=== PATIENT | female | born 1935 | race Caucasian/White ===

== ENCOUNTER 2017-09-16 10:21 | Emergency (ER) | payer MEDICARE ==
[~2017-09-16] VITALS: Ht 165.1 cm; Wt 60.0 kg
[2017-09-16] MEDS ORDERED: ALLOPURINOL100 MG PO (10:38)
[2017-09-16] MEDS ORDERED: METOPROL TAR25 MG PO (10:38)
[2017-09-16] MEDS ORDERED: ASPIRIN81 MG PO (10:39)
[2017-09-16] MEDS ORDERED: B-121000 MC4 PO (10:39)
[2017-09-16] MEDS ORDERED: SIMVASTATIN40 MG PO (10:40)
[2017-09-16] MEDS ORDERED: MUCUS RELIEF400 MG PO (10:42)
[2017-09-16] MEDS ORDERED: VENTOLIN HFA IN (10:43)
[2017-09-16 11:25] VITALS: BP 196/81
== END 2017-09-16 13:30 ==
LOC: ED 10:21
DX: S02.2XXA Fracture of nasal bones, initial encounter for closed fracture (principal); R22.0 Localized swelling, mass and lump, head; W01.0XXA Fall on same level from slipping, tripping and stumbling without subsequent striking against object, initial encounter; Y93.01 Activity, walking, marching and hiking; Y92.128 Other place in nursing home as the place of occurrence of the external cause

== ENCOUNTER 2017-11-19 21:27 | Inpatient (IN) | payer MEDICARE ==
[~2017-11-19] VITALS: Ht 165.1 cm; Wt 60.0 kg
[~2017-11-19 21:27] MED LIST: ALLOPURINOL100 MG PO; ASPIRIN81 MG PO; B-121000 MC4 PO; METOPROL TAR25 MG PO; MUCUS RELIEF400 MG PO; SIMVASTATIN40 MG PO; VENTOLIN HFA IN
[2017-11-19 22:25] LABS: HEMATOCRIT 35.4 % (37.0-47.0); HEMOGLOBIN 11.4 g/dl (12.0-16.0); IMMATURE GRANULOCYTES 0.7 % (0.0-1.0); MEAN CELL VOLUME 88.7 fL CALC (80.0-100.0); MEAN CORPUSCULAR HGB 28.6 pG CALC (26.0-32.0); MEAN CORPUSCULAR HGB CONC 32.2 g/L CALC (32.0-36.0); NEUT# 5.57 thou/uL (2.00-7.15); RED BLOOD COUNT 3.99 mill/uL (4.20-5.60); RED CELL DISTRI WIDTH 17.2 % (11.5-15.5)
[2017-11-19 22:44] LABS: ALBUMIN 2.8 g/dL (3.2-5.0); ALKALINE PHOSPHATASE 93 u/l (38-126); BUN 12 mg/dL (8-23); BUN/CREATININE RATIO 21 (12-20 (CALC)); CARBON DIOXIDE 27 mmol/l (22-30); CHLORIDE 94 mmol/l (95-108); CREATININE 0.6 mg/dL (0.5-1.0); GFR > 60 ML/MIN (>=60 (CALC)); GFR FOR AFR.AMER. > 60 ML/MIN (>=60 (CALC)); SGOT/AST 25 u/l (9-36); SGPT/ALT 21 u/l (11-66); SODIUM 132 mmol/l (137-146); TOTAL PROTEIN 5.7 g/dL (6.3-8.2)
[2017-11-19 22:46] LABS: ANION GAP 14 (6-22 (CALC)); BILIRUBIN, TOTAL 0.8 mg/dL (0.0-1.4); POTASSIUM 3.1 mmol/l (3.5-5.1)
[2017-11-19 22:56] LABS: MYOGLOBIN 269 ng/mL (0 - 62)
[2017-11-20 01:49] LABS: URINE BILIRUBIN - DIPSTICK NEGATIVE (NEGATIVE); URINE BLOOD DIPSTICK SMALL (NEGATIVE); URINE COLOR YELLOW; URINE GLUCOSE - DIPSTICK NEGATIVE (NEGATIVE); URINE KETONE NEGATIVE (NEGATIVE); URINE LEUK ESTERASE TRACE (NEGATIVE); URINE NITRITE - DIPSTICK NEGATIVE (Negative); URINE PH 6.5 (4.5-8.0); URINE PROTEIN - DIPSTICK 30 mg/dL (NEG-TRACE)
[2017-11-20 01:51] LABS: URINE CLARITY CLEAR
[2017-11-20 02:14] LABS: URINE BACTERIA MANY hpf; URINE WBC 20-50 WBC/hpf (0-5)
[2017-11-20 04:13] VITALS: BP 160/75
[2017-11-20 10:14] LABS: HEMOGLOBIN 11.1 g/dl (12.0-16.0); IMMATURE GRANULOCYTES 0.4 % (0.0-1.0); MEAN CELL VOLUME 88.1 fL CALC (80.0-100.0); MEAN CORPUSCULAR HGB 28.8 pG CALC (26.0-32.0); MEAN CORPUSCULAR HGB CONC 32.6 g/L CALC (32.0-36.0); NEUT# 3.52 thou/uL (2.00-7.15); RED BLOOD COUNT 3.86 mill/uL (4.20-5.60); RED CELL DISTRI WIDTH 17.3 % (11.5-15.5)
[2017-11-20 10:54] LABS: ALBUMIN 2.4 g/dL (3.2-5.0); ALKALINE PHOSPHATASE 78 u/l (38-126); BUN 11 mg/dL (8-23); BUN/CREATININE RATIO 19 (12-20 (CALC)); CARBON DIOXIDE 28 mmol/l (22-30); CHLORIDE 97 mmol/l (95-108); CREATININE 0.6 mg/dL (0.5-1.0); GFR > 60 ML/MIN (>=60 (CALC)); GFR FOR AFR.AMER. > 60 ML/MIN (>=60 (CALC)); SGOT/AST 29 u/l (9-36); SGPT/ALT 26 u/l (11-66); SODIUM 134 mmol/l (137-146); TOTAL PROTEIN 4.9 g/dL (6.3-8.2)
[2017-11-20 11:16] LABS: ANION GAP 11 (6-22 (CALC)); BILIRUBIN, TOTAL 0.4 mg/dL (0.0-1.4); POTASSIUM 2.4 mmol/l (3.5-5.1)
[2017-11-20 16:00] VITALS: BP 148/64
[2017-11-20 17:56] LABS: INFLUENZA A POSITIVE (NONE DETECT); INFLUENZA B NONE DETECTED (NONE DETECT)
[2017-11-20 20:00] VITALS: BP 141/62
[2017-11-20 23:48] VITALS: BP 162/67
[2017-11-21 04:05] VITALS: BP 112/57
[2017-11-21 05:27] LABS: HEMATOCRIT 32.1 % (37.0-47.0); HEMOGLOBIN 10.3 g/dl (12.0-16.0); IMMATURE GRANULOCYTES 0.3 % (0.0-1.0); MEAN CELL VOLUME 89.2 fL CALC (80.0-100.0); MEAN CORPUSCULAR HGB 28.6 pG CALC (26.0-32.0); MEAN CORPUSCULAR HGB CONC 32.1 g/L CALC (32.0-36.0); NEUT# 2.38 thou/uL (2.00-7.15); RED BLOOD COUNT 3.6 mill/uL (4.20-5.60); RED CELL DISTRI WIDTH 17.1 % (11.5-15.5)
[2017-11-21 05:46] LABS: BUN 12 mg/dL (8-23); BUN/CREATININE RATIO 20 (12-20 (CALC)); CARBON DIOXIDE 26 mmol/l (22-30); CHLORIDE 104 mmol/l (95-108); CREATININE 0.6 mg/dL (0.5-1.0); GFR > 60 ML/MIN (>=60 (CALC)); GFR FOR AFR.AMER. > 60 ML/MIN (>=60 (CALC)); MAGNESIUM 1.5 mg/dL (1.6-2.3); SODIUM 137 mmol/l (137-146)
[2017-11-21 05:48] LABS: ANION GAP 10 (6-22 (CALC)); POTASSIUM 3.3 mmol/l (3.5-5.1)
[2017-11-21 08:00] VITALS: BP 169/78
[2017-11-21 12:00] VITALS: BP 177/82
[2017-11-21 19:00] VITALS: BP 140/60
[2017-11-21 23:35] VITALS: BP 168/65
[2017-11-22 04:00] VITALS: BP 148/70
[2017-11-22 05:41] LABS: MEAN CELL VOLUME 89.4 fL CALC (80.0-100.0); MEAN CORPUSCULAR HGB CONC 31.4 g/L CALC (32.0-36.0); RED BLOOD COUNT 4.53 mill/uL (4.20-5.60); RED CELL DISTRI WIDTH 17.2 % (11.5-15.5)
[2017-11-22 05:47] LABS: HEMATOCRIT 40.5 % (37.0-47.0); HEMOGLOBIN 12.7 g/dl (12.0-16.0)
[2017-11-22 05:56] LABS: ANION GAP 16 (6-22 (CALC)); BUN 13 mg/dL (8-23); BUN/CREATININE RATIO 24 (12-20 (CALC)); CARBON DIOXIDE 26 mmol/l (22-30); CHLORIDE 101 mmol/l (95-108); CREATININE 0.6 mg/dL (0.5-1.0); GFR > 60 ML/MIN (>=60 (CALC)); GFR FOR AFR.AMER. > 60 ML/MIN (>=60 (CALC)); POTASSIUM 3.8 mmol/l (3.5-5.1); SODIUM 139 mmol/l (137-146)
[2017-11-22 15:00] VITALS: BP 182/87
[2017-11-22 18:50] VITALS: BP 161/79
[2017-11-23 00:41] VITALS: BP 139/65
[2017-11-23 04:00] VITALS: BP 130/64
[2017-11-23 07:14] LABS: HEMATOCRIT 37.4 % (37.0-47.0); HEMOGLOBIN 12.4 g/dl (12.0-16.0); IMMATURE GRANULOCYTES 0.3 % (0.0-1.0); MEAN CELL VOLUME 86.8 fL CALC (80.0-100.0); MEAN CORPUSCULAR HGB 28.8 pG CALC (26.0-32.0); MEAN CORPUSCULAR HGB CONC 33.2 g/L CALC (32.0-36.0); NEUT# 2.16 thou/uL (2.00-7.15); RED BLOOD COUNT 4.31 mill/uL (4.20-5.60); RED CELL DISTRI WIDTH 16.8 % (11.5-15.5)
[2017-11-23 07:52] LABS: ANION GAP 12 (6-22 (CALC)); BUN 17 mg/dL (8-23); BUN/CREATININE RATIO 33 (12-20 (CALC)); CARBON DIOXIDE 29 mmol/l (22-30); CHLORIDE 97 mmol/l (95-108); CREATININE 0.5 mg/dL (0.5-1.0); GFR > 60 ML/MIN (>=60 (CALC)); GFR FOR AFR.AMER. > 60 ML/MIN (>=60 (CALC)); MAGNESIUM 1.6 mg/dL (1.6-2.3); POTASSIUM 3.4 mmol/l (3.5-5.1); SODIUM 135 mmol/l (137-146)
[2017-11-23 08:00] VITALS: BP 170/84
[2017-11-23] MEDS ORDERED: AMLODIPINE BESYL5 MG PO (12:18)
[2017-11-23] MEDS ORDERED: ZITHROMAX500 MG PO (12:18)
[2017-11-23] MEDS ORDERED: TAMIFLU30 MG PO (12:18)
[2017-11-23] MEDS ORDERED: PREDNISONE10 MG PO (12:18)
[2017-11-23] MEDS ORDERED: ZOCOR20 M1 PO (12:18)
[2017-11-23 13:15] VITALS: BP 151/80
== END 2017-11-23 13:39 | DRG 194 ==
LOC: ED 21:27 → ED-I 22:09 → ED 11-20 03:02 → ICU 11-20 03:03 → MS2 11-22 15:52
PROVIDERS: Emergency Medicine; Internal Medicine; Nurse Practitioner Family; ADMIT Internal Medicine; ATTEND Internal Medicine
DX: J10.00 Influenza due to other identified influenza virus with unspecified type of pneumonia (principal); J44.1 Chronic obstructive pulmonary disease with (acute) exacerbation; I48.2 Chronic atrial fibrillation; J44.0 Chronic obstructive pulmonary disease with (acute) lower respiratory infection; E83.42 Hypomagnesemia; N39.0 Urinary tract infection, site not specified; R09.02 Hypoxemia; J18.9 Pneumonia, unspecified organism; E11.9 Type 2 diabetes mellitus without complications; F03.90 Unspecified dementia, unspecified severity, without behavioral disturbance, psychotic disturbance, mood disturbance, and anxiety; I10 Essential (primary) hypertension; E87.6 Hypokalemia
CPT/HCPCS: J2060

== ENCOUNTER 2017-12-24 13:25 | Inpatient (IN) | payer OTHER, MEDICARE ==
[~2017-12-24] VITALS: Ht 165.1 cm; Wt 79.0 kg
[~2017-12-24 13:25] MED LIST changes: +AMLODIPINE BESYL5 MG PO; +PREDNISONE10 MG PO; +TAMIFLU30 MG PO; +ZITHROMAX500 MG PO; +ZOCOR20 M1 PO
--- NOTE | 2017-12-24 13:36 | NUR ---
PT TO ROOM FOR EXAM
[2017-12-24] MEDS ORDERED: QUETIAPINE FUMA25 MG PO (13:44)
--- NOTE | 2017-12-24 13:45 | NUR ---
PT C/O BEING COLD. PT GIVEN WARM BLANKET AND CALL KEENE. CURTAINS OPENED, DOOR CLOSED. PTS RAILS UP & BED IN LOWEST POSITION. PT TOLD TO CALL STAFF.
[2017-12-24 13:59] LABS: HEMATOCRIT 34.3 % (37.0-47.0); HEMOGLOBIN 10.8 g/dl (12.0-16.0); IMMATURE GRANULOCYTES 0.6 % (0.0-1.0); MEAN CORPUSCULAR HGB 29.1 pG CALC (26.0-32.0); MEAN CORPUSCULAR HGB CONC 31.5 g/L CALC (32.0-36.0); RED BLOOD COUNT 3.71 mill/uL (4.20-5.60); RED CELL DISTRI WIDTH 17.3 % (11.5-15.5)
[2017-12-24 14:02] LABS: MEAN CELL VOLUME 92.5 fL CALC (80.0-100.0)
[2017-12-24 14:17] LABS: BUN 20 mg/dL (8-23); BUN/CREATININE RATIO 27 (12-20 (CALC)); CARBON DIOXIDE 22 mmol/l (22-30); CHLORIDE 101 mmol/l (95-108); CREATININE 0.7 mg/dL (0.5-1.0); GFR > 60 ML/MIN (>=60 (CALC)); GFR FOR AFR.AMER. > 60 ML/MIN (>=60 (CALC)); SODIUM 136 mmol/l (137-146)
[2017-12-24 14:18] LABS: ANION GAP 17 (6-22 (CALC)); POTASSIUM 4.2 mmol/l (3.5-5.1)
--- NOTE | 2017-12-24 14:26 | NUR ---
PORT XRAY COMPLETED. PT SLEEPING PRIOR TO EXAM.
--- NOTE | 2017-12-24 15:01 | NUR ---
SBAR PRINTED TO FLOOR
--- NOTE | 2017-12-24 15:10 | NUR ---
CALLED TO ROOM BY VISITOR WHO STATES PT HAD TO USE THE BATHROOM. WHEN I ENTERED THE ROOM, PT DENIED HAVING TO GO TO THE BATHROOM (IN FRONT OF VISITOR).
--- NOTE | 2017-12-24 15:15 | NUR ---
Admission Note Report Given to: ALEX DAMICON Transported by: Wheelchair X Stretcher Transported with: X Nurse Transporter X Patent IV O2 X System Sales Consultant ICU #[id number]
--- NOTE | 2017-12-24 15:30 | NUR ---
PT ARRIVED TO THE UNIT VIA STRETCHER, PT TRANSFERRED SELF FROM STRETCHER TO BED WITH MINIMAL ASSISTANCE, PT DENIES ANY PAIN AT THIS TIME, PT ORIENTED TO PERSON, PT ORIENTED TO THE ROOM, CALL KEENE SYSTEM AND MONITORING EQUIPMENT, PT VERBALIZES UNSDERSTANDING AT THIS TIME, PT HAS A HX OF DEMENTIA PER DAUGHTER WHO IS BEDSIDE, REOIENTATION WILL BE PROVIDED NEEDED, PERRL, LUNG SOUNDS DIMINISHED IN THE BASES, STRONG RADIAL PULSES, WEAK PEDAL PULSES, 2+ BLE EDEMA, BUTTOCK RED, PT EDUCATED ABOUT REPOSTIONING TO PREVENT PRESSURE ULCERS, ADMISSION ASSESSMENT COMPLETE, SEE INTERVENTIONS, SAFETY MEASURES INTRODUCED, CALL KEENE WITHIN REACH
--- NOTE | 2017-12-24 15:42 | NUR ---
PT TRANSPORTED TO ICU #4 BY STRETCHER WITH TELE IN STABLE CONDITION.
--- NOTE | 2017-12-24 16:20 | NUR ---
PT REPOSTIONED AND CLEANED UP FROM INCONTINENTS
--- NOTE | 2017-12-24 16:50 | NUR ---
DR RALPH AT BEDSIDE, DISCUSSING PLAN OF CARE WITH PT AND DAUGHTER
--- NOTE | 2017-12-24 17:20 | NUR ---
PT ASSISTED TO THE BSC AND BACK TO BED, PT AMBULATED WITH A SLOW UNSTEADY GAIT, TOLERATED WELL, CALL KEENE WITHIN REACH
--- NOTE | 2017-12-24 17:30 | NUR ---
SETUP ASSISTANCE PROVIDED WITH PM MEAL
--- NOTE | 2017-12-24 17:40 | NUR ---
PT PULLING AT MONITORING EQUIPMENT AND TRYING TO CRAWL OUT OF BED, PT STATES "I NEED TO GET OUT OF HERE", PT REORIENTED TO LOCATION, REMINDED TO CALL FOR ASSISTANCE, CALL KEENE WITHIN REACH
--- NOTE | 2017-12-24 18:20 | NUR ---
IN STORE REPRESENTATIVE AT BEDSIDE, PT MAKES REPEATED ATTMEPTS TO GET OOB, WILL NOT LEAVE MONITORING EQUIPMENT IN PLACE, REPEATEDLY STATES JUST HELP ME OUT TO THE LIVING ROOM, ATTEMPTS TO REORIENT NOT SUCCESSFUL
--- NOTE | 2017-12-24 18:40 | NUR ---
PT TRYING TO CRAWL OUT OF BED, TRIED TO REORIENTED PT WITH NO SUCCESS, PT KICKING AT STAFF, MADE AWARE OF BEHAVIOR, ORDERS GIVEN
--- NOTE | 2017-12-24 18:40 | NUR ---
REPORT FROM Otto VEGA LPN. ASSUMED PT. CARE.
--- NOTE | 2017-12-24 18:45 | NUR ---
PT. FOUND COMPLETELY UNCOOPERATIVE AT THIS TIME. SITTER AT BEDSIDE AND PT. YELLING AT SITTER ATTEMPTING TO HIT HER IN THE FACE. ALSO ATTEMPTING TO AND HAS SUCCESSFULLY KICKED THE SITTER IN THE FACE. PT. IS ORIENTED TO PERSON ONLY. THINKS SHE IS IN A KITCHEN. ORIENTED TO SITUATION. PT. IS REFUSING TO KEEP ANY LINES/TELEMETRY/BP CUFF OR PULSE OX ON HER PERSON. ATTEMPTING TO PULL OFF GOWN. YELLING AND CONTINUALLY ATTEMPTING TO CLIMB OUT OF BED. MADE AWARE. NEW ORDERS RECEIVED.
--- NOTE | 2017-12-24 19:00 | NUR ---
PT. MEDICATED PER PHYSICIAN ORDERS. PT. REMAINS UNCOOPERATIVE WITH CARE. SLIGHTLY LESS AGGITATED AT THIS TIME. NO LONGER REFUSING TO TAKE PO MEDS. ORIENTED TO PERSON ONLY. PULSE 88 AT THIS TIME. TEMP 99.2. RESPS ARE EVEN AND UNLABORED. SKIN IS WARM AND DRY. SITTER REMAINS AT BEDSIDE ATTEMPTING TO REORIENT AND KEEP PATIENT IN THE BED. WILL CONTINUE TO MONITOR.
[2017-12-24 20:00] VITALS: BP 138/99
--- NOTE | 2017-12-24 20:30 | NUR ---
PT. LESS ANXIOUS, BUT REMAINS UNCOOPERATIVE WITH CARE AND ATTEMPTED TREATMENT INTERVENTIONS. TEMP IS 99.2. PT. CONTINUES TO ATTEMPT TO PULL GOWN OFF AND REFUSES TO KEEP MONITORS IN PLACE. CALL LIGHT REMAINS WITHIN REACH. WILL CONTINUE TO MONITOR.
--- NOTE | 2017-12-24 21:10 | NUR ---
PT. REMAINS RESTLESS AND ATTEMPTING TO CLIMB OOB. MEDICATED PER PHYSICIAN ORDERS. REMAINS ORIENTED TO PERSON ONLY. AWAITING PARAPLANNER TO CALL TO TAKE PATIENT DOWN FOR CT CHEST/ABD PELVIS. CALL LIGHT REMAINS WITHIN REACH AND SITTER REMAINS AT BEDSIDE AT THIS TIME. WILL CONTINUE TO MONITOR.
[2017-12-24 21:56] VITALS: BP 129/87
[2017-12-24 22:00] VITALS: BP 113/56
--- NOTE | 2017-12-24 22:15 | NUR ---
PT. CLEANSED OF URINARY INCONTINENCE AT THIS TIME. LARGE AMOUNT OF URINARY INCONTINENCE NOTED.
--- NOTE | 2017-12-24 22:30 | NUR ---
PT. TAKEN DOWN TO RADIOLOGY AT THIS TIME FOR CT SCAN WITH TESTER REGULATOR TO ASSIST.
--- NOTE | 2017-12-24 23:00 | NUR ---
RETURNED FROM CT SCAN AT THIS TIME. PT. GIVEN TOTAL BED BATH SHE IS INCONTNENT OF URINE FROM TRANSPORT TO CT SCAN. PT. TOLERATED CT WELL. NO REACTIONS. PT. WAS LESS THAN COOPERATIVE WITH CT STUDY. PT. REORIENTED TO ROOM AND ATTEMPTED TO HOOK PT. UP TO TELEMETRY AND BP/SPO2 MONITOR. NITRO PASTE REMAINS IN PLACE TO LT. UPPER BACK.
[2017-12-25] VITALS (9 sets, daily range): BP systolic 84–132; BP diastolic 37–71
--- NOTE | 2017-12-25 00:57 | NUR ---
PT. RESTING IN BED WITH EYES CLOSED. SITTER REMAINS AT BEDSIDE AT THIS TIME. REMAINS INTERMITTENTLY UNCOOPERATIVE, BUT ALLOWING MONITOR LEADS TO REMAIN ON AT THIS TIME. VSS. CALL LIGHT REMAINS WITHIN REACH.
--- NOTE | 2017-12-25 02:30 | NUR ---
PT. RESTING WITH EYES CLOSED. RESPS REMAIN EVEN AND UNLABORED. RESEARCH SPEC CONTINUES TO SIT AT BEDSIDE TO REORIENT PATIENT NEEDED. VSS. PT. VOICES NO COMPLAINTS, CONCERNS OR NEEDS. WILL CONTINUE TO MONITOR.
--- NOTE | 2017-12-25 04:15 | NUR ---
PT. INCREASINGLY AGGITATED, ATTEMPTING TO CLIMB OUT OF BED. ATTEMPTED TO REORIENT PATIENT. REMAINS ORIENTED TO PERSON ONLY. RESPS REMAIN EVEN AND UNLABORED. CALL LIGHT REMAINS WITHIN REACH. PT. REMAINS A-FIB WITH RATE IN THE 70-90'S.
--- NOTE | 2017-12-25 06:10 | NUR ---
BLOOD SAMPLES OBTAINED AT THIS TIME. PT. REMAINS CALM AND RESTFUL. PADS CHANGED AT THIS TIME PT. INCONTINENT OF URINE. PARTIAL BED BATH GIVEN. PT. TOLERATED WELL. CALL LIGHT REMAINS WITHIN REACH.
[2017-12-25 06:25] LABS: IMMATURE GRANULOCYTES 0.4 % (0.0-1.0); MEAN CELL VOLUME 89.8 fL CALC (80.0-100.0); MEAN CORPUSCULAR HGB 28.8 pG CALC (26.0-32.0); NEUT# 5.15 thou/uL (2.00-7.15); RED BLOOD COUNT 3.13 mill/uL (4.20-5.60); RED CELL DISTRI WIDTH 17.2 % (11.5-15.5)
[2017-12-25 06:26] LABS: HEMATOCRIT 28.1 % (37.0-47.0)
[2017-12-25 06:38] LABS: ANION GAP 12 (6-22 (CALC)); BUN 19 mg/dL (8-23); BUN/CREATININE RATIO 25 (12-20 (CALC)); CARBON DIOXIDE 27 mmol/l (22-30); CHLORIDE 100 mmol/l (95-108); CREATININE 0.8 mg/dL (0.5-1.0); GFR > 60 ML/MIN (>=60 (CALC)); GFR FOR AFR.AMER. > 60 ML/MIN (>=60 (CALC)); POTASSIUM 3.6 mmol/l (3.5-5.1); SODIUM 136 mmol/l (137-146)
--- NOTE | 2017-12-25 07:30 | NUR ---
PT LAYING IN BED RESTING WITH EYES CLOSED, AROUSES EASILY TO VERBAL STIMULI, PT ORIENTED TO PERSON, NEEDS REOIENTING FREQUENTLY, HR 76, RESP. 22, BP 99/45, O2 100%, LUNG SOUNDS CLEAR WITH CRACKLES IN THE BASES, STRONG RADIAL PULSES, WEAK PEDAL PULSES, AM ASSESSMENT COMPLETE, SEE INTERVENTIONS, SAFETY MEASURES REINFORCED, CALL KEENE WITHIN REACH
--- NOTE | 2017-12-25 08:00 | NUR ---
PT DROWSY, AROUSES BUT UNABLE TO TO STAY AWAKE LONG ENOUGH FOR AM MEAL, PT ORIENTED TO PERSON, REMINDED TO CALL FOR ASSISTANCE, CALL KEENE WITHIN REACH
--- NOTE | 2017-12-25 10:20 | NUR ---
PT LAYING IN BED RESTING WITH EYES CLOSED, AROUSES THEN DOZES OFF QUICKLY, VITAL SIGNS REMAIN STABLE, CALL KEENE WITHIN REACH
--- NOTE | 2017-12-25 11:00 | NUR ---
PARTIAL BATH GIVEN TO PT, PT CLEANED UP AND FRESH LINENS PUT ON BED, PT REMAINS DROWSY, AROUSES TO VERBAL STIMULI, VITAL SIGNS REMAIN STABLE, CALL KEENE WITHIN REACH
--- NOTE | 2017-12-25 12:00 | NUR ---
PT REMAINS DROWSY AROUSES TO VERBAL STIMULI, PT REPOSITIONED, PT REMAINS DRY AT THIS TIME, CALL KEENE WITHIN REACH
--- NOTE | 2017-12-25 14:29 | NUR ---
PT ARRIVED VIA BED WITH STAFF AT 1425. TOLERATED MOVE WELL. CONTINUE TO OSBERVE AND MONITOR.
--- NOTE | 2017-12-25 16:00 | NUR ---
PT HAS BEEN RESTING IN BED WITH NO DISTRESS NOTED. IV SITE WAS REMOVED BY PT AFTER BEING VISITED BY AND AVA.
--- NOTE | 2017-12-25 16:22 | NUR ---
AVA AND IN TO VISIT WITH PT. AND THEN PT PULLED IV SITE OUT. SHE HAD BEEN RESTING QUIETLY
--- NOTE | 2017-12-25 16:30 | NUR ---
ATTEMPTED X2 TO RESTART IV UNSUCCESS FUL. PT BEGAN TRYING TO BITE STAFF. AND STATED" LEAVE ME ALONE".
--- NOTE | 2017-12-25 22:43 | NUR ---
PT.IS IN BED SLEEPING AT THIS TIME. SUPERVISOR PIPELINES ATTEMPTED TO GET HER TO EAT TWICE SO FAR TONIGHT TO NO AVAIL. WE WILL CONTINUE TRYING TO GET HER TO TAKE HER PO MEDICATIONS AND EAT. BED ALARM ON
--- NOTE | 2017-12-25 23:35 | NUR ---
WE HAVE ATTEMPTED TO GET PT.TO TAKE HER PO MEDICATIONS, EAT A LITTLE APPLESAUCE, PUDDING OR SANDWICH. PT.REFUSES ALL. PT.IS IN NEED OF ANY IV SITE AND THIS HAS BEEN ATTEMPTED, PT REFUSING AND BECOMES COMBATIVE UPON TRYING. NOTIFIED WHO ORDERED TELEMETRY MONITORING TO BE DISCONTINUED AT THIS TIME. ED NOTIFIED AND TELE REMOVED FROM PT. NO IV SITE ACCESSED. PT.QUICKLY RETURNED RIGHT BACK TO SLEEP W/OUT SIGNS OF DISTRESS AT THIS TIME.
--- NOTE | 2017-12-26 01:37 | NUR ---
PT.IS SLEEPING AT THIS TIME W/OUT S/S OF DISTRESS NOTED. LIGHTS ARE OUT, BED ALARM ON AND CALL LIGHT AT SIDE
[2017-12-26 04:00] VITALS: BP 125/75
[2017-12-26 05:19] LABS: HEMATOCRIT 32.7 % (37.0-47.0); HEMOGLOBIN 10.4 g/dl (12.0-16.0); IMMATURE GRANULOCYTES 0.7 % (0.0-1.0); MEAN CELL VOLUME 91.9 fL CALC (80.0-100.0); MEAN CORPUSCULAR HGB 29.2 pG CALC (26.0-32.0); MEAN CORPUSCULAR HGB CONC 31.8 g/L CALC (32.0-36.0); NEUT# 3.91 thou/uL (2.00-7.15); RED BLOOD COUNT 3.56 mill/uL (4.20-5.60); RED CELL DISTRI WIDTH 17.1 % (11.5-15.5)
--- NOTE | 2017-12-26 05:31 | NUR ---
PT.WAS SLEEPING, BUT AWOKE TO OUR VOICES. PT.WAS COOPERATIVE W/GETTING V/S, CLEANED UP OF URINARY INCONTINENCE, ALEIDA CH APPLIED. PT.OFFERED AND ASSISTED IN DRINKING WATER, SHE REFUSED HER O2 NC,SHE KEEPS PULLING IT OFF. PT.SEEMS MORE LUCID THIS AM THAN OVERNIGHT. PT.LEFT GOING BACK TO SLEEP W/EYES CLOSED, LIGHTS LOW AND BED ALARM ON.
[2017-12-26 05:41] LABS: ALBUMIN 2.7 g/dL (3.2-5.0); ALKALINE PHOSPHATASE 102 u/l (38-126); ANION GAP 16 (6-22 (CALC)); BUN 19 mg/dL (8-23); BUN/CREATININE RATIO 28 (12-20 (CALC)); CARBON DIOXIDE 24 mmol/l (22-30); CHLORIDE 102 mmol/l (95-108); CREATININE 0.7 mg/dL (0.5-1.0); GFR > 60 ML/MIN (>=60 (CALC)); GFR FOR AFR.AMER. > 60 ML/MIN (>=60 (CALC)); MAGNESIUM 1.7 mg/dL (1.6-2.3); POTASSIUM 3.6 mmol/l (3.5-5.1); SGOT/AST 30 u/l (9-36); SGPT/ALT 33 u/l (11-66); SODIUM 139 mmol/l (137-146); TOTAL PROTEIN 5.7 g/dL (6.3-8.2)
--- NOTE | 2017-12-26 07:00 | NUR ---
BEDSIDE REPORT RECEIVED BY PAULA PT IS SLEEPING WITH NO S/S OF DISTRESS NOTED. BED ALARM IN PLACE.
[2017-12-26 08:00] VITALS: BP 131/69
--- NOTE | 2017-12-26 08:00 | NUR ---
ASSESSMENT DONE. LUNG SOUND CLEAR/ DIMINISHED. PT STATED NO PAIN AT THIS TIME. BILAT ANKLES TRACE EDEMA. NO S/S OF DISTRESS NOTED WITH PT. BED ALARM IN PLACE.
--- NOTE | 2017-12-26 12:00 | NUR ---
PT IS SLEEPING ON HER RIGHT SIDE WITH NO S/S OF DISTRESS NOTED. BEDALARM IN PLACE.
[2017-12-26 15:08] VITALS: BP 109/65
--- NOTE | 2017-12-26 16:00 | NUR ---
PT IS SLEEPING WITH NO S/S OF DISTRESS NOTED . RESPS EVEN AND UNLABORED. BED ALRAM IN PLACE.
--- NOTE | 2017-12-26 17:08 | NUR ---
PT IS ON HER LEFT SIDE WITH NO S/S OF DISTRESS NOTED. BED ALARM IN PLACE.
--- NOTE | 2017-12-26 19:30 | NUR ---
PATIENT RESTING IN BED AT THIS TIME WITH EYES CLOSED AND APPEARS SLEEPING AT THIS TIME. RESP ARE EVEN AND UNLABORED. BED ALARM IN PLACE FOR PATIENT SAFETY. CALL LIGHT IN REACH. WILL CONT TO MONITOR.
--- NOTE | 2017-12-26 20:00 | NUR ---
PATIENT UNCOOPERATIVE IN ATTEMPT TO HAVE ECHO CARDIOGRAM DONE AT THIS TIME. REMAINS IN BED AT THIS TIME. BED ALARM IN PLACE FOR PATIENT SAFETY. CALL LIGHT IN REACH. WILL CONT TO MONITOR.
[2017-12-26 20:15] VITALS: BP 124/74
--- NOTE | 2017-12-26 21:00 | NUR ---
PATIENT IS AWAKE AND TAKING PO MEDS ORDERED WITHOUT ANY DIFFICULTY AT THIS TIME. NO DIFFICULTY NOTED WHEN TAKING MEDS-SWALLOWS WITHOUT ANY DIFFICULTY. PATIENT ALSO TAKING APPLESAUCE I CONTAINER AND 1 CUP OF APPLE JUICE WITH MEDS.PATIENT IS ORIENTED TO PERSON ONLY AT THIS TIME. BED ALARM IN PLACE FOR PATIENT SAFETY. CALL LIGHT IN REACH. WILL CONT TO MONITOR.
--- NOTE | 2017-12-26 23:50 | NUR ---
PATIENT RESTING IN BED AND APPEARS SLEEPING AT THIS TIME-EYES CLOSED. CONT TO TAKE PO FLUIDS WHEN OFFERED. BED ALARM IN PLACE FOR PATIENT SAFETY. CALL LIGHT IN REACH. WILL CONT TO MONITOR.
--- NOTE | 2017-12-27 01:48 | NUR ---
PATIENT INCONT OF MODERATE AMT OF SOFT BROWN STOOL. PATIENT GIVEN KASSIDY-CARE WITH SOAP AND WATER. BARRIER CREAM APPLIED TO REDDENED AREA. COMPLETE LINEN CHANGE WAS DONE AND PATIENT WAS TURNED AND REPOSITIONED. PATIENT CONT TO BE CONFUSED. BED ALARM IN PLACE FOR PATIENT SAFETY. CALL LIGHT IN REACH. WILL CONT TO MONITOR.
[2017-12-27 04:13] VITALS: BP 120/70
--- NOTE | 2017-12-27 04:39 | NUR ---
PATIENT APPEARS SLEEPING AT THIS TIME. BED ALARM IN PLACE FOR PATIENT SAFETY. CALL LIGHT IN REACH. WILL CONT TO MONITOR.
--- NOTE | 2017-12-27 05:04 | NUR ---
PATIENT INCONT OF LARGE AMT OF BROWN STOOL. PATIENT CLEANED UP AND LINENS CHANGED. PATIENT IS NOT COOPERATING IN HER CARE-COMBATIVE AT TIMES. BED ALARM IN PLACE FOR PATIENT SAFETY. WILL CONT TO MONITOR.
[2017-12-27 05:40] LABS: HEMATOCRIT 35.5 % (37.0-47.0); HEMOGLOBIN 11.3 g/dl (12.0-16.0); IMMATURE GRANULOCYTES 0.5 % (0.0-1.0); MEAN CELL VOLUME 91.5 fL CALC (80.0-100.0); MEAN CORPUSCULAR HGB 29.1 pG CALC (26.0-32.0); MEAN CORPUSCULAR HGB CONC 31.8 g/L CALC (32.0-36.0); NEUT# 7.75 thou/uL (2.00-7.15); RED BLOOD COUNT 3.88 mill/uL (4.20-5.60)
[2017-12-27 05:51] LABS: ANION GAP 17 (6-22 (CALC)); BUN 18 mg/dL (8-23); BUN/CREATININE RATIO 22 (12-20 (CALC)); CARBON DIOXIDE 25 mmol/l (22-30); CHLORIDE 99 mmol/l (95-108); CREATININE 0.8 mg/dL (0.5-1.0); GFR > 60 ML/MIN (>=60 (CALC)); GFR FOR AFR.AMER. > 60 ML/MIN (>=60 (CALC)); MAGNESIUM 1.6 mg/dL (1.6-2.3); POTASSIUM 4.1 mmol/l (3.5-5.1); SODIUM 137 mmol/l (137-146)
--- NOTE | 2017-12-27 07:00 | NUR ---
REPORT RECEIVED BY SOPHIA BOOTH. PT IS SLEEPING IN BED WITH NO S/S OF DISTRESS NOTED. BED ALARM IN PLACE.
[2017-12-27 07:37] VITALS: BP 100/60
--- NOTE | 2017-12-27 08:00 | NUR ---
PT AWAKES UP WHEN SPOKEN TO BUT THEN GOES BACK TO SLEEP.ASSESSMENT DONE. ENCAOURAGE PT TO DRINK WATER. RESPS EVEN AND UNLABORED. PT DENIES PAIN AT THIS TIME. BED ALARM IN PLACE AND CALL LIGHT IN REACH.
[2017-12-27 08:52] VITALS: BP 100/60
[2017-12-27 09:48] LABS: URINE BLOOD DIPSTICK LARGE (NEGATIVE); URINE COLOR YELLOW; URINE GLUCOSE - DIPSTICK NEGATIVE (NEGATIVE); URINE KETONE NEGATIVE (NEGATIVE); URINE LEUK ESTERASE TRACE (NEGATIVE); URINE NITRITE - DIPSTICK NEGATIVE (Negative); URINE PH 6.5 (4.5-8.0); URINE PROTEIN - DIPSTICK 100 mg/dL (NEG-TRACE); URINE UROBILINOGEN - DIPSTICK >=8.0 E.U./dL (0.2)
[2017-12-27 09:49] LABS: URINE BILIRUBIN - DIPSTICK SMALL (NEGATIVE); URINE CLARITY HAZY; URINE EPITHELIAL CELLS MANY EPI/hpf (0-FEW); URINE MUCUS FEW hpf (NONE-FEW); URINE RBC 25-50 RBC/hpf (0-5); URINE WBC 0-2 WBC/hpf (0-5)
--- NOTE | 2017-12-27 12:00 | NUR ---
PT IS RESTING ON HER LEFT SIDE WITH NO S/S OF DISTRESS NOTED. PT DENIES PAIN AT THIS TIME. BED ALARM IN PLACE.
[2017-12-27] MEDS ORDERED: LASIX20 MG PO (13:11)
[2017-12-27] MEDS ORDERED: KEFLEX500 M1 PO (13:12)
--- NOTE | 2017-12-27 14:09 | NUR ---
Discharge instructions given. Patient verbalizes understanding of same. Discharged in stable condition via Wheelchair to Home with staff. All belongings sent with pt.
--- NOTE | 2017-12-27 14:55 | NUR ---
REPORT GIVEN TO CARITO FROM [facility].
== END 2017-12-27 14:08 | DRG 292 ==
LOC: ED 13:25 → ED-I 13:39 → ED 14:56 → ICU 14:57 → MS2 17:32 → ICU 17:32 → MS2 12-25 14:22
PROVIDERS: Family Medicine; Nurse Practitioner Family; ADMIT Hospitalist; ATTEND Hospitalist
PROC: 0T9B70Z Drainage of Bladder with Drainage Device, Via Natural or Artificial Opening (ICD-10-PCS; principal; 2017-12-27)
DX: I50.9 Heart failure, unspecified (principal); N13.6 Pyonephrosis; F03.91 Unspecified dementia, unspecified severity, with behavioral disturbance; R64 Cachexia; I48.2 Chronic atrial fibrillation; E11.9 Type 2 diabetes mellitus without complications; F41.9 Anxiety disorder, unspecified; R29.810 Facial weakness; H02.402 Unspecified ptosis of left eyelid; K57.30 Diverticulosis of large intestine without perforation or abscess without bleeding; R32 Unspecified urinary incontinence; S30.810A Abrasion of lower back and pelvis, initial encounter; X58.XXXA Exposure to other specified factors, initial encounter; Z66 Do not resuscitate; Z68.28 Body mass index [BMI] 28.0-28.9, adult
CPT/HCPCS: J2060; Q9967

== ENCOUNTER 2018-01-16 05:08 | Emergency (ER) | payer OTHER, MEDICARE ==
[~2018-01-16] VITALS: Ht 165.1 cm; Wt 61.0 kg
[~2018-01-16 05:08] MED LIST changes: +KEFLEX500 M1 PO; +LASIX20 MG PO; +QUETIAPINE FUMA25 MG PO
[2018-01-16] MEDS ORDERED: FLUOXETINE20 MG PO (05:22)
[2018-01-16] MEDS ORDERED: METHIMAZOLE5 MG PO (05:22)
[2018-01-16 05:29] LABS: HEMATOCRIT 33.3 % (37.0-47.0); HEMOGLOBIN 10.4 g/dl (12.0-16.0); IMMATURE GRANULOCYTES 0.6 % (0.0-1.0); MEAN CELL VOLUME 93.5 fL CALC (80.0-100.0); MEAN CORPUSCULAR HGB 29.2 pG CALC (26.0-32.0); MEAN CORPUSCULAR HGB CONC 31.2 g/L CALC (32.0-36.0); NEUT# 6.44 thou/uL (2.00-7.15); RED BLOOD COUNT 3.56 mill/uL (4.20-5.60)
[2018-01-16 05:48] LABS: ALBUMIN 3.2 g/dL (3.2-5.0); ALKALINE PHOSPHATASE 100 u/l (38-126); ANION GAP 18 (6-22 (CALC)); BILIRUBIN, TOTAL 0.7 mg/dL (0.0-1.4); BUN 17 mg/dL (8-23); BUN/CREATININE RATIO 22 (12-20 (CALC)); CARBON DIOXIDE 23 mmol/l (22-30); CHLORIDE 101 mmol/l (95-108); CREATININE 0.8 mg/dL (0.5-1.0); GFR > 60 ML/MIN (>=60 (CALC)); GFR FOR AFR.AMER. > 60 ML/MIN (>=60 (CALC)); LIPASE 133 u/l (23-300); SGOT/AST 21 u/l (9-36); SGPT/ALT 30 u/l (11-66); SODIUM 137 mmol/l (137-146); TOTAL PROTEIN 6.2 g/dL (6.3-8.2)
[2018-01-16 05:49] LABS: ACT PARTIAL THROMBO TIME 24.3 SECONDS (20.0-32.5); PROTHROMBIN TIME 10.7 SECONDS (9.0-12.5)
[2018-01-16 06:01] LABS: MYOGLOBIN 31 ng/mL (0 - 62)
[2018-01-16 06:32] LABS: URINE BILIRUBIN - DIPSTICK NEGATIVE (NEGATIVE); URINE BLOOD DIPSTICK TRACE-INTACT (NEGATIVE); URINE CLARITY CLEAR; URINE COLOR YELLOW; URINE GLUCOSE - DIPSTICK NEGATIVE (NEGATIVE); URINE KETONE NEGATIVE (NEGATIVE); URINE LEUK ESTERASE NEGATIVE (NEGATIVE); URINE NITRITE - DIPSTICK NEGATIVE (Negative); URINE PH 6.5 (4.5-8.0); URINE PROTEIN - DIPSTICK 30 mg/dL (NEG-TRACE)
[2018-01-16 06:44] LABS: URINE SQUAMOUS EPITHELIAL CELL RARE EPI/hpf (0-FEW); URINE WBC 0-2 WBC/hpf (0-5)
[2018-01-16 11:25] VITALS: BP 186/80
== END 2018-01-16 11:25 | DRG 313 ==
LOC: ED 05:08 → ED-I 05:19 → ED 05:19 → ED-I 07:46 → ED 11:25
PROVIDERS: Emergency Medicine
DX: R07.9 Chest pain, unspecified (principal); I48.91 Unspecified atrial fibrillation; F03.90 Unspecified dementia, unspecified severity, without behavioral disturbance, psychotic disturbance, mood disturbance, and anxiety; R06.02 Shortness of breath

== ENCOUNTER 2018-02-17 05:55 | Emergency (ER) | payer MEDICARE ==
[~2018-02-17] VITALS: Ht 165.1 cm; Wt 68.2 kg
[~2018-02-17 05:55] MED LIST changes: +FLUOXETINE20 MG PO; +METHIMAZOLE5 MG PO
[2018-02-17 07:14] VITALS: BP 174/70
[2018-02-18] MEDS ORDERED: SINGULAIR10 MG PO (18:13)
[2018-02-18] MEDS ORDERED: TOPROL XL PO (18:16)
[2018-02-18] MEDS ORDERED: METO50TA52 PO (18:19)
[2018-02-18] MEDS ORDERED: B121000 MCG PO (18:20)
[2018-02-18] MEDS ORDERED: SIMVASTATIN10 MG PO (18:32)
[2018-02-18] MEDS ORDERED: ARTIFIC TEAR OU (18:36)
[2018-02-18] MEDS ORDERED: SEROQUEL25 MG PO (18:37)
[2018-02-18] MEDS ORDERED: SIMVASTATIN40 MG PO (18:38)
== END 2018-02-17 07:36 ==
LOC: ED 05:55
DX: S00.03XA Contusion of scalp, initial encounter (principal); W18.30XA Fall on same level, unspecified, initial encounter; Y92.099 Unspecified place in other non-institutional residence as the place of occurrence of the external cause

== ENCOUNTER 2018-02-18 17:52 | Observation (INO) | payer MEDICARE ==
[~2018-02-18] VITALS: Ht 165.1 cm; Wt 2.7 kg
[2018-02-18] MEDS ORDERED: SINGULAIR10 MG PO (18:13)
[2018-02-18] MEDS ORDERED: TOPROL XL PO (18:16)
[2018-02-18] MEDS ORDERED: METO50TA52 PO (18:19)
[2018-02-18] MEDS ORDERED: B121000 MCG PO (18:20)
[2018-02-18 18:22] LABS: HEMATOCRIT 34.5 % (37.0-47.0); HEMOGLOBIN 10.9 g/dl (12.0-16.0); IMMATURE GRANULOCYTES 0.4 % (0.0-1.0); MEAN CELL VOLUME 91.3 fL CALC (80.0-100.0); MEAN CORPUSCULAR HGB 28.8 pG CALC (26.0-32.0); MEAN CORPUSCULAR HGB CONC 31.6 g/L CALC (32.0-36.0); NEUT# 8.28 thou/uL (2.00-7.15); RED BLOOD COUNT 3.78 mill/uL (4.20-5.60); RED CELL DISTRI WIDTH 16.2 % (11.5-15.5)
[2018-02-18] MEDS ORDERED: SIMVASTATIN10 MG PO (18:32)
[2018-02-18] MEDS ORDERED: ARTIFIC TEAR OU (18:36)
[2018-02-18] MEDS ORDERED: SEROQUEL25 MG PO (18:37)
[2018-02-18] MEDS ORDERED: SIMVASTATIN40 MG PO (18:38)
[2018-02-18 18:48] LABS: ALBUMIN 3.6 g/dL (3.2-5.0); ALKALINE PHOSPHATASE 108 u/l (38-126); ANION GAP 17 (6-22 (CALC)); BILIRUBIN, TOTAL 0.6 mg/dL (0.0-1.4); BUN 25 mg/dL (8-23); BUN/CREATININE RATIO 30 (12-20 (CALC)); CARBON DIOXIDE 23 mmol/l (22-30); CHLORIDE 100 mmol/l (95-108); CREATININE 0.9 mg/dL (0.5-1.0); GFR 60 ML/MIN (>=60 (CALC)); GFR FOR AFR.AMER. > 60 ML/MIN (>=60 (CALC)); POTASSIUM 4.7 mmol/l (3.5-5.1); SGOT/AST 19 u/l (9-36); SGPT/ALT 27 u/l (11-66); SODIUM 135 mmol/l (137-146); TOTAL PROTEIN 6.8 g/dL (6.3-8.2)
[2018-02-18 19:01] LABS: INFLUENZA A NONE DETECTED (NONE DETECT); INFLUENZA B NONE DETECTED (NONE DETECT)
[2018-02-18 21:40] VITALS: BP 133/65
[2018-02-19 07:30] VITALS: BP 145/54
[2018-02-19 10:38] LABS: ANION GAP 19 (6-22 (CALC)); BUN 23 mg/dL (8-23); BUN/CREATININE RATIO 39 (12-20 (CALC)); CARBON DIOXIDE 20 mmol/l (22-30); CHLORIDE 100 mmol/l (95-108); CREATININE 0.6 mg/dL (0.5-1.0); GFR > 60 ML/MIN (>=60 (CALC)); GFR FOR AFR.AMER. > 60 ML/MIN (>=60 (CALC)); MAGNESIUM 1.7 mg/dL (1.6-2.3); POTASSIUM 4.1 mmol/l (3.5-5.1); SODIUM 135 mmol/l (137-146)
[2018-02-19] MEDS ORDERED: DOXYCYC MONO100 M2 PO (11:43)
== END 2018-02-19 13:07 ==
LOC: ED 17:52 → ED-I 20:00 → ED 20:15 → MS2 20:16
PROVIDERS: Emergency Medicine; Family Medicine; Nurse Practitioner Family; ADMIT Internal Medicine; ATTEND Internal Medicine
DX: R06.02 Shortness of breath (principal); R05 Cough; R09.02 Hypoxemia; F03.90 Unspecified dementia, unspecified severity, without behavioral disturbance, psychotic disturbance, mood disturbance, and anxiety; J44.9 Chronic obstructive pulmonary disease, unspecified; I50.9 Heart failure, unspecified; E11.9 Type 2 diabetes mellitus without complications; M10.9 Gout, unspecified; I48.91 Unspecified atrial fibrillation; E86.0 Dehydration; Z87.891 Personal history of nicotine dependence

== ENCOUNTER 2018-03-07 18:12 | Emergency (ER) | payer MEDICARE ==
[~2018-03-07] VITALS: Ht 165.1 cm; Wt 72.0 kg
[~2018-03-07 18:12] MED LIST changes: +ARTIFIC TEAR OU; +B121000 MCG PO; +DOXYCYC MONO100 M2 PO; +METO50TA52 PO; +SEROQUEL25 MG PO; +SIMVASTATIN10 MG PO; +SINGULAIR10 MG PO; +TOPROL XL PO
[2018-03-07 19:07] VITALS: BP 172/100
[2018-03-07] MEDS ORDERED: NAPROSYN500 MG PO (19:15)
== END 2018-03-07 19:36 ==
LOC: ED 18:12
DX: S00.03XA Contusion of scalp, initial encounter (principal); F03.90 Unspecified dementia, unspecified severity, without behavioral disturbance, psychotic disturbance, mood disturbance, and anxiety; E11.9 Type 2 diabetes mellitus without complications; I50.9 Heart failure, unspecified; I48.91 Unspecified atrial fibrillation; M10.9 Gout, unspecified; W01.0XXA Fall on same level from slipping, tripping and stumbling without subsequent striking against object, initial encounter; Y92.099 Unspecified place in other non-institutional residence as the place of occurrence of the external cause

== ENCOUNTER 2018-07-16 14:34 | Emergency (ER) | payer OTHER, MEDICARE ==
[~2018-07-16] VITALS: Ht 165.1 cm; Wt 70.7 kg
[~2018-07-16 14:34] MED LIST changes: +NAPROSYN500 MG PO
[2018-07-16 15:57] VITALS: BP 174/82
== END 2018-07-16 16:05 | DRG 125 ==
LOC: ED 14:34
PROC: 0HQ1XZZ Repair Face Skin, External Approach (ICD-10-PCS; principal; 2018-07-16)
DX: S01.112A Laceration without foreign body of left eyelid and periocular area, initial encounter (principal); E11.9 Type 2 diabetes mellitus without complications; F03.90 Unspecified dementia, unspecified severity, without behavioral disturbance, psychotic disturbance, mood disturbance, and anxiety; I50.9 Heart failure, unspecified; I48.91 Unspecified atrial fibrillation; M10.9 Gout, unspecified; W01.0XXA Fall on same level from slipping, tripping and stumbling without subsequent striking against object, initial encounter; Y92.091 Bathroom in other non-institutional residence as the place of occurrence of the external cause

== ENCOUNTER 2019-06-01 11:42 | Emergency (ER) | payer OTHER, MEDICARE ==
[~2019-06-01] VITALS: Ht 165.1 cm; Wt 72.7 kg
[~2019-06-01 11:42] MED LIST changes: -METO50TA52 PO
[2019-06-01 12:23] LABS: HEMATOCRIT 33.5 % (37.0-47.0); HEMOGLOBIN 10.4 g/dl (12.0-16.0); IMMATURE GRANULOCYTES 0.6 % (0.0-5.0); MEAN CORPUSCULAR HGB 26.3 pG CALC (26.0-32.0); NEUT# 5.86 thou/uL (2.00-7.15); RED BLOOD COUNT 3.96 mill/uL (4.20-5.60); RED CELL DISTRI WIDTH 18.5 % (11.5-15.5)
[2019-06-01 12:48] LABS: ANION GAP 13 (6-22 (CALC)); BUN 24 mg/dL (8-23); BUN/CREATININE RATIO 23 (12-20 (CALC)); CARBON DIOXIDE 24 mmol/l (22-30); CHLORIDE 103 mmol/l (95-108); GFR 53 ML/MIN (>=60 (CALC)); GFR FOR AFR.AMER. > 60 ML/MIN (>=60 (CALC)); POTASSIUM 4.3 mmol/l (3.5-5.1); SODIUM 135 mmol/l (137-146)
[2019-06-01 12:56] LABS: MEAN CELL VOLUME 84.6 fL CALC (80.0-100.0)
[2019-06-01 14:46] VITALS: BP 138/62
== END 2019-06-01 15:10 | DRG 312 ==
LOC: ED 11:42
PROVIDERS: Family Medicine
DX: I95.1 Orthostatic hypotension (principal); F03.90 Unspecified dementia, unspecified severity, without behavioral disturbance, psychotic disturbance, mood disturbance, and anxiety; E11.9 Type 2 diabetes mellitus without complications; I50.9 Heart failure, unspecified; I48.91 Unspecified atrial fibrillation

== ENCOUNTER 2020-07-18 15:26 | Observation (INO) | payer OTHER, MEDICARE, MEDICAID ==
[~2020-07-18] VITALS: Ht 165.1 cm; Wt 61.0 kg
--- NOTE | 2020-07-18 15:37 | NUR ---
PT AWAKE AND LOOKING AROUND WHILE IN STRETCHER, NO DISTRESS, DOES NOT KNOW WHY SHE IS HERE.
--- NOTE | 2020-07-18 15:47 | NUR ---
PT BLADDER SCANNED FOR 61 ML URINE.
[2020-07-18 16:22] LABS: HEMATOCRIT 32.7 % (37.0-47.0); HEMOGLOBIN 9.6 g/dl (12.0-16.0); IMMATURE GRANULOCYTES 0.4 % (0.0-5.0); MEAN CELL VOLUME 84.1 fL CALC (80.0-100.0); MEAN CORPUSCULAR HGB 24.7 pG CALC (26.0-32.0); MEAN CORPUSCULAR HGB CONC 29.4 g/dL CAL (32.0-36.0); NEUT# 9.28 thou/uL (2.00-7.15); RED BLOOD COUNT 3.89 mill/uL (4.20-5.60); RED CELL DISTRI WIDTH 18.6 % (11.5-15.5)
[2020-07-18 16:43] LABS: ALBUMIN 3.4 g/dL (3.2-5.0); ALKALINE PHOSPHATASE 89 u/l (38-126); BILIRUBIN, TOTAL 0.4 mg/dL (0.0-1.4); BUN 20 mg/dL (8-23); BUN/CREATININE RATIO 30 (12-20 (CALC)); CARBON DIOXIDE 25 mmol/l (22-30); CHLORIDE 100 mmol/l (95-108); CREATININE 0.7 mg/dL (0.5-1.0); GFR > 60 ML/MIN (>=60 (CALC)); GFR FOR AFR.AMER. > 60 ML/MIN (>=60 (CALC)); SGOT/AST 18 u/l (9-36); SODIUM 134 mmol/l (137-146); TOTAL PROTEIN 7.2 g/dL (6.3-8.2)
--- NOTE | 2020-07-18 16:46 | NUR ---
PT ASSISTED TO [facility] [place], [place] WHERE SHE VOIDED SMALL AMOUNT, ENOUGH FOR A SPECIMEN.
[2020-07-18 17:08] LABS: URINE BILIRUBIN - DIPSTICK NEGATIVE (NEGATIVE); URINE BLOOD DIPSTICK MODERATE (NEGATIVE); URINE COLOR YELLOW; URINE GLUCOSE - DIPSTICK NEGATIVE (NEGATIVE); URINE KETONE NEGATIVE (NEGATIVE); URINE NITRITE - DIPSTICK NEGATIVE (Negative); URINE PROTEIN - DIPSTICK 100 mg/dL (NEG-TRACE); URINE SPECIFIC GRAVITY 1.025
[2020-07-18 17:09] LABS: ANION GAP 13 (6-22 (CALC)); POTASSIUM 4.3 mmol/l (3.5-5.1)
[2020-07-18 17:21] LABS: URINE LEUK ESTERASE SMALL (NEGATIVE)
[2020-07-18 17:22] LABS: URINE BACTERIA MODERATE hpf; URINE EPITHELIAL CELLS MANY EPI/hpf (0-FEW)
[2020-07-18] MEDS ORDERED: KEFLEX500 MG PO (17:38)
--- NOTE | 2020-07-18 19:30 | NUR ---
PATIENT ADMITTED FROM ER WITH ER STAFF IN ATTENDANCE-PATIENT TRANSFERRED FROM STRETCHER TO BED. PATIENT IS AWAKE AND ORIENTED TO SELF ONLY. IV SITE TO LEFT AC IS OUT AND NOT PRESENT. PATIENT IS CONFUSED TO PLACE AND TIME. ATTEMPTED TO REORIENT PATIENT WITH LITTLE SUCCESS. PATIENT WAS ADMITTED FROM THE [facility] PER ER STAFF. HX OF DEMENTIA. TAKING PO FLUIDS WITHOUT DIFFICULTY WHEN OFFERED. SIDERAILS UP AND BED IN LOW POSITION. BED ALARM IN PLACE FOR PATIENT SAFETY. CALL LIGHT IN REACH. WILL CONT TO MONITOR.
--- NOTE | 2020-07-18 22:00 | NUR ---
PATIENT RESTING IN BED-NEW IV SITE STARTED TO LEFT FOREARM-#22 GAUGE WITH GOOD BLOOD RETURN. IVF NS PATENT AND INFUSING AT 100CC/HR. ROCEPHIN HUNG ORDERED. PATIENT TAKING SMALL AMT OF VANILLIA PUDDING WHEN OFFERED. PATIENT INCONT OF MODERATE AMT OF URINE AND SMALL AMT OF LIGHT BROWN STOOL. PERICARE WITH SOAP AND WATER PROVIDED. PERINEAL AREA IS SLIGHTLY REDDENED. PATIENT IS SLIGHTLY RESTLESS AND RIGID WHEN TURNED FROM SIDE TO SIDE. BED ALARM IN PLACE. CALL LIGHT IN REACH. WILL CONT TO MONITOR,
[2020-07-19] VITALS (7 sets, daily range): BP systolic 120–180; BP diastolic 62–120
--- NOTE | 2020-07-19 00:32 | NUR ---
PATIENT APPEARS SLEEPING AT THIS TIME WITH EYES CLOSED. HOB SLIGHTLY ELEVATED. RESPS ARE EVEN AND UNLABORED. IVF NS PATENT AND INFUSING VIA LEFT FOREARM AT 100CC/HR. SITE APPEARS HEALTHY AT THIS TIME. BED ALARM IN PLACE FOR PATIENT SAFETY. CALL LIGHT IN REACH. WILL CONT TO MONITOR.
--- NOTE | 2020-07-19 04:33 | NUR ---
PATIENT APPEARS SLEEPING AT THIS TIME WITH EYES CLOSED. RESPS ARE EVEN AND UNLABORED. IVF NS PATENT AND INFUSING VIA LEFT FOREARM SITE AT 100CC/HR. BED ALARM IN PLACE FOR PATIENT SAFETY. CALL LIGHT IN REACH. WILL CONT TO MONITOR.
[2020-07-19 05:13] LABS: HEMATOCRIT 34.2 % (37.0-47.0); HEMOGLOBIN 10.3 g/dl (12.0-16.0); MEAN CELL VOLUME 82.8 fL CALC (80.0-100.0); MEAN CORPUSCULAR HGB 24.9 pG CALC (26.0-32.0); MEAN CORPUSCULAR HGB CONC 30.1 g/dL CAL (32.0-36.0); RED BLOOD COUNT 4.13 mill/uL (4.20-5.60); RED CELL DISTRI WIDTH 18.4 % (11.5-15.5)
--- NOTE | 2020-07-19 05:27 | NUR ---
PATIENT RESTING IN BED-MORE ALERT THIS MORNING. STILL JUST ORIENTED TO SELF BUT MORE ALERT. COMPLETE BED BATH AND LINEN CHANGED DONE. PATIENT WAS INCONT OF LARGE AMT OF URINE AND SMALL BROWN BM. TURNING BETTER THIS MORNING-NOT RIGID LAST NIGHT. SPEECH IS STRONGER THIS MORNING. IVF PATENT AND INFUSING AT 100CC/HR VIA LEFT FOREARM SITE. BED ALARM IN PLACE FOR PATIENT SAFETY. SAFETY PRECAUTIONS REINFORCED. CALL LIGHT IN REACH. WILL CONT TO MONITOR.
[2020-07-19 05:35] LABS: ANION GAP 9 (6-22 (CALC)); BUN 12 mg/dL (8-23); BUN/CREATININE RATIO 20 (12-20 (CALC)); CARBON DIOXIDE 27 mmol/l (22-30); CHLORIDE 105 mmol/l (95-108); CREATININE 0.6 mg/dL (0.5-1.0); GFR > 60 ML/MIN (>=60 (CALC)); GFR FOR AFR.AMER. > 60 ML/MIN (>=60 (CALC)); POTASSIUM 4.3 mmol/l (3.5-5.1); SODIUM 137 mmol/l (137-146)
[2020-07-19] MEDS ORDERED: QUETIAPINE FUMA25 MG PO (07:13)
--- NOTE | 2020-07-19 12:34 | NUR ---
PATIENT RESTING. VITALS ARE STABLE. SON VISITED BEDSIDE. MD REQUESTS ONE MORE DAY OF IV ABX. POSSIBLE DC TOMORROW
--- NOTE | 2020-07-19 16:00 | NUR ---
TANK CAR CLEANER ALERTED RN OF ELEVATED BP. PATIENT AGITATED SAYING SHE IS LOCKED IN A ROOM AND CANT GET OUT. RN REORIENTED PATEINT TO PLACE. BP RETAKEN AND STILL ELEVATED, dR SCHMIDT NOTIFIED AND STATED TO GIVE SEROQUEL EARLY AND RETAKE BP
--- NOTE | 2020-07-19 17:18 | NUR ---
PATIENT BP 162/80. WILL CONTINUE TO MONITOR
--- NOTE | 2020-07-19 17:59 | NUR ---
PAITENT IS RESTING COMFORTABLY. BP IS 120/67
--- NOTE | 2020-07-19 19:30 | NUR ---
PATIENT RESTING IN BED WITH HOB SLIGHTLY ELEVATED AND EYES CLOSED. RESPS ARE EVEN AND UNLABORED. IVF NS PATENT AND INFUSING AT 20CC/HR VIA LEFT FOREARM SITE. BED ALARM IN PLACE FOR PATIENT SAFETY. CALL LIGHT IN REACH. WILL CONT TO MONITOR.
--- NOTE | 2020-07-19 20:27 | NUR ---
CALL RECEIVED FROM JOSE IN LAB STATING COVID SWAB NEEDED TO BE COLLECTED. ORDER NOTED TO BE PUT IN BY En MURPHY LPN. SPOKE W/ En MURPHY TO VERIFY SAMPLE HAD NOT BEEN COLLECTED. VERIFIED SAMPLE STILL NEEDED. NASAL SWAB FOR CV-19 COLLECTED AND SENT TO LAB. PT TOLERATED WELL.
--- NOTE | 2020-07-19 23:37 | NUR ---
PATIENT RESTING IN BED WITH EYES CLOSED AND APPEARS SLEEPING. RESPS ARE EVEN AND UNLABORED. IVF PATENT AND INFUSING VIA LEFT FA SITE AT 20CC/HR. BED ALARM IN PLACE FOR PATIENT SAFETY. CALL LIGHT IN REACH. WILL CONT TO MONITOR.
--- NOTE | 2020-07-20 01:57 | NUR ---
PATIENT RESTING IN BED AT THIS TIME POSITIONED ON RIGHT SIDE. EYES ARE CLOSD, RESPS ARE EVEN AND UNLABORED. BED ALARM IN PLACE FOR PATIENT SAFETY. CALL LIGHT IN REACH. WILL CONT TO MONITOR.
[2020-07-20 03:55] VITALS: BP 150/70
--- NOTE | 2020-07-20 04:37 | NUR ---
PATIENT RESTING IN BED AT THIS TIME-EYES CLOSED. RESPS EVEN AND UNLABORED. IVF PATENT AND INFUSING AT 20CC/HR VIA LEFT FOREARM SITE. CALL LIGHT IN REACH. WILL CONT TO MONITOR.
--- NOTE | 2020-07-20 05:30 | NUR ---
PATIENT INCONT OF LARGE AMT OF URINE AND SMALL SOFT BROWN STOOL. PATIENT GIVEN PERICARE WITH SOAP AND WATER. BARRIER CREAM APPLIED TO BUTTOCKS. TURNED AND REPOSITIONED-PATIENT IS VERY RIGID WHEN TRYING TO TURN HER. PADS WERE CHANGED. IVF NS PATENT AND INFUSING VIA LEFT FOREARM SITE AT 20CC/HR. B ED ALARM IN PLACE FOR PATIENT SAFETY. CALL LIGHT IN REACH. WILL CONT TO MONITOR.
[2020-07-20 05:48] LABS: HEMATOCRIT 37.3 % (37.0-47.0); HEMOGLOBIN 11.2 g/dl (12.0-16.0); MEAN CELL VOLUME 82.5 fL CALC (80.0-100.0); MEAN CORPUSCULAR HGB 24.8 pG CALC (26.0-32.0); RED BLOOD COUNT 4.52 mill/uL (4.20-5.60)
[2020-07-20 06:10] LABS: ANION GAP 14 (6-22 (CALC)); BUN 12 mg/dL (8-23); BUN/CREATININE RATIO 20 (12-20 (CALC)); CARBON DIOXIDE 22 mmol/l (22-30); CHLORIDE 101 mmol/l (95-108); CREATININE 0.6 mg/dL (0.5-1.0); GFR > 60 ML/MIN (>=60 (CALC)); GFR FOR AFR.AMER. > 60 ML/MIN (>=60 (CALC)); MAGNESIUM 1.7 mg/dL (1.6-2.3); POTASSIUM 4.2 mmol/l (3.5-5.1); SODIUM 133 mmol/l (137-146)
[2020-07-20 07:30] VITALS: BP 138/82
--- NOTE | 2020-07-20 07:30 | NUR ---
PATIENT IN BED ALERT TO SELF. PATIENT ASSESSMENT DONE AT THIS TIME SEE (INTERVENTIONS). PATIENT WHEN ASKED IF SHE HAS PAIN STATED "NO". ALL SAFETY MEASURES ARE IN PLACE CALL LIGHT NEAR.
[2020-07-20 09:22] VITALS: BP 138/82
--- NOTE | 2020-07-20 09:22 | NUR ---
PATIENT IN BED AND IV FOUND DISLODGED FROM IV SITE. AREA CLEANED AND DRESSING APPLIED. PHYSICIAN IN ROOM AND STATED TO D/C IV PLACEMENT AT THIS TIME DUE TO PATIENT GOING BACK TO REHAB TODAY. PATIENT MEDICATIONS GIVEN AT THIS TIME WITH PUDDING AND DID SWALLOW WITHOUT COMPLICATIONS.
[2020-07-20] MEDS ORDERED: KEFLEX500 M1 PO (09:40)
--- NOTE | 2020-07-20 11:01 | NUR ---
NURSE TO NURSE REPORT CALLED TO SINTIA YAP AND SPOKE TO NURSE DIEHL. ALL DISCHARE INSTRUCTIONS GONE OVER WITH NURSE AT THIS TIME.
== END 2020-07-20 10:57 | disposition home health service (06) | DRG 690 ==
LOC: ED 15:26 → MS2 18:15
PROVIDERS: Nurse Practitioner; ADMIT Internal Medicine; ATTEND Internal Medicine
DX: N30.90 Cystitis, unspecified without hematuria (principal); F03.91 Unspecified dementia, unspecified severity, with behavioral disturbance; I11.0 Hypertensive heart disease with heart failure; I50.9 Heart failure, unspecified; E11.9 Type 2 diabetes mellitus without complications; I48.91 Unspecified atrial fibrillation; J45.909 Unspecified asthma, uncomplicated; M10.9 Gout, unspecified; B96.1 Klebsiella pneumoniae [K. pneumoniae] as the cause of diseases classified elsewhere; Z87.891 Personal history of nicotine dependence; Z20.828 Contact with and (suspected) exposure to other viral communicable diseases
CPT/HCPCS: G0378; J1650

== ENCOUNTER 2020-08-11 12:01 | Inpatient (IN) | payer OTHER, MEDICARE, MEDICAID ==
[~2020-08-11] VITALS: Ht 165.1 cm; Wt 70.8 kg
[~2020-08-11 12:01] MED LIST changes: +KEFLEX500 MG PO
--- NOTE | 2020-08-11 12:05 | NUR ---
PATIENT TO ROOM VIA EMS AND PHYSICIAN NOTIFIED OFM PATIENT STATUS
[2020-08-11 12:40] LABS: HEMATOCRIT 36.9 % (37.0-47.0); HEMOGLOBIN 11.1 g/dl (12.0-16.0); IMMATURE GRANULOCYTES 0.5 % (0.0-5.0); MEAN CELL VOLUME 82.6 fL CALC (80.0-100.0); MEAN CORPUSCULAR HGB 24.8 pG CALC (26.0-32.0); MEAN CORPUSCULAR HGB CONC 30.1 g/dL CAL (32.0-36.0); NEUT# 8.71 thou/uL (2.00-7.15); RED BLOOD COUNT 4.47 mill/uL (4.20-5.60); RED CELL DISTRI WIDTH 19.6 % (11.5-15.5)
[2020-08-11 12:58] LABS: ALBUMIN 3.2 g/dL (3.2-5.0); CREATININE 1.3 mg/dL (0.5-1.0); POTASSIUM 4.5 mmol/l (3.5-5.1)
--- NOTE | 2020-08-11 13:01 | NUR ---
REPORT GIVEN TO SOPHIA TREJO.
[2020-08-11 13:02] LABS: BILIRUBIN, TOTAL 0.6 mg/dL (0.0-1.4)
--- NOTE | 2020-08-11 13:52 | NUR ---
PT RESTING AWARE OF BUSY ER, NO COMPLAINTS, NO S/SF DISTRESS, CALL KEENE WITHIN REACH
--- NOTE | 2020-08-11 14:15 | NUR ---
PT RESTING REMAINS CONFUSED AND NON VERBAL, DNO S/S OF DISTRESS NTOED
--- NOTE | 2020-08-11 14:55 | NUR ---
STTEMPTED ST CATH TWICE W/O SUCCESS, ALLOWING PT TO RESET WILL ATTEMPT ORTIZ IN A BIT PER MD ORDER. MD AWARE OF 2 OPENINGS ON LE LABIA LIP WITH PURULENT BLOODY DRNG NOTED
--- NOTE | 2020-08-11 16:19 | NUR ---
ORTIZ CATH PLACED USING STERILE TECHNIQUE. WITH IMMEDIATE RETRUN OF CLOUDY ARY URINE WITH FOUL ODOR, PT TOLERATED WELL, PT ALSO NOTED TO HAVE WHAT APPEAR TO BE MUTIPLE FISTULAS 2 TO L LABIA LIP AND 2 FURTHER BACK IN KASSIDY RECTAL AREA.
--- NOTE | 2020-08-11 16:21 | NUR ---
MD AT BEDSIDE TO ASSIST WITH ORTIZ AND AWARE OF FISTULAS
[2020-08-11 16:48] LABS: URINE BLOOD DIPSTICK MODERATE (NEGATIVE); URINE COLOR YELLOW; URINE GLUCOSE - DIPSTICK NEGATIVE (NEGATIVE); URINE KETONE TRACE mg/dL (NEGATIVE); URINE NITRITE - DIPSTICK NEGATIVE (Negative); URINE PH 6.5 (4.5-8.0); URINE PROTEIN - DIPSTICK 100 mg/dL (NEG-TRACE); URINE SPECIFIC GRAVITY 1.025
[2020-08-11 16:52] LABS: URINE BILIRUBIN - DIPSTICK SMALL (NEGATIVE); URINE LEUK ESTERASE LARGE (NEGATIVE)
[2020-08-11 16:53] LABS: URINE BACTERIA MANY hpf; URINE SQUAMOUS EPITHELIAL CELL FEW EPI/hpf (0-FEW); URINE WBC TNTC WBC/hpf (0-5)
--- NOTE | 2020-08-11 17:35 | NUR ---
PT IVF INFUSING ORDERED ABT GIVEN ORDERED WELL
--- NOTE | 2020-08-11 18:06 | NUR ---
SON IN LAW AT BEDSIDE CALL YECENIA ROBLES,
--- NOTE | 2020-08-11 19:08 | NUR ---
PT RESTING ORTIZ INTACT, CARE RELINQUISHED TO KAITLIN CORTES
--- NOTE | 2020-08-11 20:22 | NUR ---
REPORT ATTEMPTED. NURSE UNAVAILABLE. WILL CALL AGAIN LATER.
--- NOTE | 2020-08-11 20:52 | NUR ---
ROOM NUMBER CHANGED. REPORT ATTEMPTED. NURSE UNAVAILABLE.
--- NOTE | 2020-08-11 21:17 | NUR ---
[facility] PATIENT READIED FOR TRANSPORT TO FLOOR.
[2020-08-11 21:30] VITALS: BP 113/90
--- NOTE | 2020-08-11 22:20 | NUR ---
RECEIVED REPORT FROM NURSE GARCIA PATIENT TRANSPORTED VIA WHEELCHAIR ARRIVE TO FLOOR AT 2130, HOOKED TO O2 @ 2LPM VIA NC, NOTED TO HAVE OCCASIONAL COUGH NON PRODUCTIVE, PATIENT IS ALERT ONLY TO SELF, WITH ORTIZ CATHETER DRAINING ARY COLORED URINE, HOOKED TO TELE AFIB 99, LBM 08/11, PATIENT INCONTINENT OF BOWEL, PATIENT BM SMALL SOFT INCONTINET CARE PROVIDED, ADMISSION ASSESSMENT DONE, ACTIVE BOWEL SOUNDS. NOTED TO HAVE STAGE 1 ON BUTTOCKS, MASS NOTED NEAR RT RECTAL AREA, ALEIDA HOSE IN PLACE, CALL LIGHT AT REACH.
[2020-08-12] VITALS (7 sets, daily range): BP systolic 103–190; BP diastolic 76–131
--- NOTE | 2020-08-12 | NUR ---
PATIENT APPEARS TO BE SLEPPING WITH EYS CLOSED, REMAINS ON O2 @ 2LPM VIA NC, NOT IN DISTRESS, CALL LIGHT AT REACH.
--- NOTE | 2020-08-12 04:55 | NUR ---
PATIENT RESTING IN BED EYES CLOSED, REMAINS ON O2 @2LPM VIA NC NOT IN DISTRESS REMAINS ON BED ALARM, CALL LIGHT AT REACH.
--- NOTE | 2020-08-12 05:46 | NUR ---
PATIENT TURNED ON HER RT SIDE AND REPOSITONED.CALL LIGHT AT REACH.
--- NOTE | 2020-08-12 10:01 | NUR ---
PT LAYING IN BED. A&O TO NAME/SPEECH. REORIENTATION NEEDED. O2 VIA NC @2L IN PLACE. ORTIZ CATH DRAINING VIA GRAVITY, WITH CLOUDY URINE NOTED. PT DENIES ANY PAIN AT THIS TIME. ASSESSMENT COMPLETED. DISCUSSED POC. CALL LIGHT IN REACH. CONTINUE TO MONITOR.
--- NOTE | 2020-08-12 15:31 | NUR ---
PT SLEEPING IN BED. NO NEEDS OR DISTRESS AT THIS TIME. CALL LIGHT IN REACH. CONTINUE TO MONITOR.
--- NOTE | 2020-08-12 16:42 | NUR ---
PT SLEEPING IN BED. NO DISTRESS OR NEEDS AT THIS TIME. CALL LIGHT IN REACH. CONTINUE TO MONITOR.
--- NOTE | 2020-08-12 19:37 | NUR ---
PT. SLEEPING; AWAKENED FOR ASSESSMENT AND COMPLETED AT THIS TIME. IV SITE PATENT AND NS INFUSING PER ORDER. PT. ALERT TO SELF ONLY. O2 INFUSING PER NC @2LITERS/MIN. ORTIZ CATHETER IN PLACE AND DRAINING AT GRAVITY LEVEL. NO DISTRESS NOTED. ENCOURAGED TO CALL FOR ANY NEEDS. CALL LIGHT IS IN REACH. BED ALARM ON.
--- NOTE | 2020-08-12 22:23 | NUR ---
NOTIFIED DR. MILLER OF ELEVATED HR IN THE 120'S AND OF IN MED REC SHOWING TOPROL XL 25MG DAILY COMPLETED IN 2019; NEW ORDERS RECEIVED AND TO BE CARRIED OUT. ALSO NOTIFIED OF COVID SWAB RESULTING POSITIVE.
--- NOTE | 2020-08-12 23:01 | NUR ---
VS OBTAINED AND B/P ELEVATED WELL HR 178/95 AND HR 105; MEDICATED WITH ORDERED METOPROLOL; WILL REASSESS. NEW IV SITE STARTED TO LEFT HAND AND EMS SITE REMOVED FROM LAC WITH CATHETER TIP INTACT.SNACK PROVIDED. CALL LIGHT IS IN REACH. BED ALARM IN PLACE.
[2020-08-13 00:47] VITALS: BP 178/103
--- NOTE | 2020-08-13 00:47 | NUR ---
NOTIFIED DR. MILLER OF ELEVATED B/P 178/103 WITH HR NOW FLUCTUATING 90-100; NEW ORDERS RECEIVED F0R PRN APRESOLINE; WILL CARRY OUT THESE ORDERS.
--- NOTE | 2020-08-13 00:57 | NUR ---
PT. MEDICATED WITH ORDERED PRN APRESOLINE; WILL REASSESS.
[2020-08-13 01:35] VITALS: BP 110/53
--- NOTE | 2020-08-13 01:35 | NUR ---
REASSESSED B/P AND NOW DOWN TO 110/53; WILL CONTINUE TO MONITOR.
[2020-08-13 04:00] VITALS: BP 111/76
--- NOTE | 2020-08-13 06:32 | NUR ---
RESTING IN BED WITH EYES OPEN. NO DISTRESS NOTED; BED ALARM ON.
[2020-08-13 07:45] VITALS: BP 154/85
--- NOTE | 2020-08-13 07:45 | NUR ---
PT LAYING IN BED. A&O TO NAME. PT MORE AWAKE THIS MORNING. DENIES ANY PAIN AT THIS TIME. O2 VIA NC @2L IN PLACE. ORTIZ CATHETER DRAINING VIA GRAVITY WITH CLOUDY URINE NOTED. ASSESSMENT COMPLETED. DISCUSSED POC, REINFORCEMENT NEEDED. CALL LIGHT IN REACH. CONTINUE TO MONITOR.
[2020-08-13 08:06] LABS: HEMATOCRIT 35.3 % (37.0-47.0); HEMOGLOBIN 10.4 g/dl (12.0-16.0); MEAN CELL VOLUME 83.6 fL CALC (80.0-100.0); MEAN CORPUSCULAR HGB 24.6 pG CALC (26.0-32.0); MEAN CORPUSCULAR HGB CONC 29.5 g/dL CAL (32.0-36.0); RED BLOOD COUNT 4.22 mill/uL (4.20-5.60); RED CELL DISTRI WIDTH 19.3 % (11.5-15.5)
[2020-08-13 08:32] LABS: ALKALINE PHOSPHATASE 73 u/l (38-126); ANION GAP 9 (6-22 (CALC)); BUN 22 mg/dL (8-23); BUN/CREATININE RATIO 42 (12-20 (CALC)); C-REACTIVE PROTEIN 8.7 mg/dL (0-0.9); CARBON DIOXIDE 22 mmol/l (22-30); CHLORIDE 114 mmol/l (95-108); CREATININE 0.5 mg/dL (0.5-1.0); GFR > 60 ML/MIN (>=60 (CALC)); GFR FOR AFR.AMER. > 60 ML/MIN (>=60 (CALC)); POTASSIUM 4.1 mmol/l (3.5-5.1); SGOT/AST 26 u/l (9-36); SODIUM 142 mmol/l (137-146); TOTAL PROTEIN 6.8 g/dL (6.3-8.2)
[2020-08-13 08:33] LABS: BILIRUBIN, TOTAL 0.3 mg/dL (0.0-1.4)
--- NOTE | 2020-08-13 14:31 | NUR ---
BED LINEN CHANGED, MODERATE LOOSE BM. ORTIZ CATH CARE PROVIDED. PT TOLERATED WELL. CONTINUE TO MONITOR. BED ALARM IN PLACE.
[2020-08-13 15:00] VITALS: BP 140/96
--- NOTE | 2020-08-13 15:38 | NUR ---
PT SLEEPING IN BED. NO DISTRESS NOTED. CONTINUE TO MONITOR.
[2020-08-13 19:30] VITALS: BP 114/90
--- NOTE | 2020-08-13 19:30 | NUR ---
PT. FOUND WITH IV SITE DISLODGED WITH CATHETER TIP INTACT, BRUISING NOTED TO LEFT HAND. PT. WITH FOOD FROM DINNER TRAY PARTIALLY IN LAP; ASSISTED TO CLEAN UP AND LINENS CHANGED WELL ASSISTING HER WITH REST OF DINNER. VSS. SCHED MEDS GIVEN. [id number]% ON RA AND RE-APPLIED O2 AND BACK UP TO 93%. PT. IS ONLY ALERT TO SELF AND IS INTERMITTENTLY COMBATIVE AND NOT HELPFUL WITH INTERVENTIONS; RELAXATION TECHNIQUES IMPLEMENTED AND WILL NEED RE-ORIENTATION OFTEN. BED ALARM ON FOR SAFETY. NEW IV SITE STARTED TO RIGHT WRIST X1 ATTEMPT AND SL. CALL LIGHT IS IN REACH; WILL CONTINUE TO MONITOR.
[2020-08-14] VITALS: BP 120/83
--- NOTE | 2020-08-14 | NUR ---
PT. SLEEPING AND AWAKENED FOR VS; VSS; PT WITH O2 OFF AND SPO2 95% AT THIS TIME. OFFERED PO FLUIDS OFFERED. CALL LIGHT IS IN REACH.
--- NOTE | 2020-08-14 02:26 | NUR ---
PT. RESTING IN RESP. EVEN AND UNLABORED. BED ALARM IN PLACE. CALL LIGHT IS IN REACH.
[2020-08-14 04:00] VITALS: BP 146/81
--- NOTE | 2020-08-14 05:40 | NUR ---
RESTING IN BED WITH EYES CLOSED; RESP. EVEN AND UNLABORED.
[2020-08-14 08:00] VITALS: BP 107/91
--- NOTE | 2020-08-14 09:00 | NUR ---
PT SEEN AWAKE, ALERT, ORIENTED X 1. PT EATING BREAKFAST. LUNGS CLEAR, SLIGHTLY DIMINISHED, 2 LPM NC. PT WITH PILLS PLACED IN APPLESAUSE, BUT SHE STARTED REMOVING THEM. CAPSULES THEN OPENED AND PILLS SWALLOWED WITH ENCOURAGEMENT. PT AFIB, HR 125, ASYMPTOMATIC.
[2020-08-14 10:54] VITALS: BP 156/101
[2020-08-14] MEDS ORDERED: KEFLEX500 MG PO (11:22)
[2020-08-14] MEDS ORDERED: LOPRESSOR25 M1 PO (11:28)
--- NOTE | 2020-08-14 13:28 | NUR ---
FAMILY MEMBER JACKSON GENNA UPDATED WHEN HE CALLED, DID NOT KNOW THAT SHE WAS READY FOR DISPOSITION TO TRANSITIONAL FACILITY PRIOR TO RETURN TO [facility]. PT CONTINUES CONFUSED BUT PLEASANT, NO RESPIRATORY DISTRESS.
[2020-08-14] MEDS ORDERED: DEXAMETHASON6 MG PO (14:49)
[2020-08-14] MEDS ORDERED: ZITHROMAX500 MG PO (14:49)
[2020-08-14 14:50] VITALS: BP 103/67
--- NOTE | 2020-08-14 16:21 | NUR ---
PT WITH TELE OFF AND IV REMOVED IN ANTICIPATION OF DISCHARGE TO [facility]. NO CHANGE IN PT STATUS.
--- NOTE | 2020-08-14 16:33 | NUR ---
RE[facility] BE[facility] RECEIVING NURSE MABLE. AWAITING [facility] FOR TRANSPORT TO FACILITY.
--- NOTE | 2020-08-14 18:02 | NUR ---
PT LEAVES AT THIS TIME WITH TRANSPORTER FOR [facility], NO CHANGE IN STATUS PRIOR TO DEPARTURE.
== END 2020-08-14 18:00 | DRG 177 ==
LOC: ED 12:01 → ED-I 16:47 → ED 17:13 → MS2 17:14
PROVIDERS: Family Medicine; Nurse Practitioner Family; ADMIT Internal Medicine; ATTEND Internal Medicine
PROC: 0T9B70Z Drainage of Bladder with Drainage Device, Via Natural or Artificial Opening (ICD-10-PCS; principal; 2020-08-11)
DX: U07.1 COVID-19 (principal); J12.89 Other viral pneumonia; J96.00 Acute respiratory failure, unspecified whether with hypoxia or hypercapnia; N39.0 Urinary tract infection, site not specified; I48.91 Unspecified atrial fibrillation; E86.0 Dehydration; F03.90 Unspecified dementia, unspecified severity, without behavioral disturbance, psychotic disturbance, mood disturbance, and anxiety; E11.9 Type 2 diabetes mellitus without complications; I50.9 Heart failure, unspecified; M10.9 Gout, unspecified; J45.909 Unspecified asthma, uncomplicated; B96.20 Unspecified Escherichia coli [E. coli] as the cause of diseases classified elsewhere; Z87.891 Personal history of nicotine dependence
CPT/HCPCS: J1650

== ENCOUNTER 2020-11-01 06:33 | Emergency (ER) | payer OTHER, MEDICARE, MEDICAID ==
[~2020-11-01] VITALS: Ht 165.1 cm; Wt 56.0 kg
[~2020-11-01 06:33] MED LIST changes: +DEXAMETHASON6 MG PO; +LOPRESSOR25 M1 PO
[2020-11-01] MEDS ORDERED: [UNRECOGNIZED DRUG - OTHER] PO (06:59)
[2020-11-01] MEDS ORDERED: IVERMECTIN3 MG PO (07:01)
[2020-11-01 07:33] LABS: HEMATOCRIT 31.7 % (37.0-47.0); HEMOGLOBIN 9.2 g/dl (12.0-16.0); IMMATURE GRANULOCYTES 0.7 % (0.0-5.0); MEAN CELL VOLUME 88.8 fL CALC (80.0-100.0); MEAN CORPUSCULAR HGB 25.8 pG CALC (26.0-32.0); NEUT# 9.28 thou/uL (2.00-7.15); RED BLOOD COUNT 3.57 mill/uL (4.20-5.60); RED CELL DISTRI WIDTH 19.2 % (11.5-15.5)
[2020-11-01 07:39] LABS: INTERNATIONAL NORMALIZED RATIO 1.1 RATIO (0.7-1.3); PROTHROMBIN TIME 10.6 SECONDS (9.0-12.5)
[2020-11-01 07:41] LABS: ALKALINE PHOSPHATASE 97 u/l (38-126); BUN 25 mg/dL (8-23); BUN/CREATININE RATIO 24 (12-20 (CALC)); CARBON DIOXIDE 18 mmol/l (22-30); CHLORIDE 102 mmol/l (95-108); GFR 53 ML/MIN (>=60 (CALC)); GFR FOR AFR.AMER. > 60 ML/MIN (>=60 (CALC)); TOTAL PROTEIN 7.9 g/dL (6.3-8.2)
[2020-11-01 08:09] LABS: ANION GAP 18 (6-22 (CALC)); POTASSIUM 5.3 mmol/l (3.5-5.1); SGOT/AST 56 u/l (9-36); SODIUM 133 mmol/l (137-146)
[2020-11-01 08:49] LABS: URINE BILIRUBIN - DIPSTICK NEGATIVE (NEGATIVE); URINE BLOOD DIPSTICK MODERATE (NEGATIVE); URINE COLOR YELLOW; URINE GLUCOSE - DIPSTICK NEGATIVE (NEGATIVE); URINE KETONE NEGATIVE (NEGATIVE); URINE LEUK ESTERASE NEGATIVE (NEGATIVE); URINE NITRITE - DIPSTICK NEGATIVE (Negative); URINE PROTEIN - DIPSTICK >=300 mg/dL (NEG-TRACE); URINE SPECIFIC GRAVITY 1.025
[2020-11-01 09:00] LABS: URINE EPITHELIAL CELLS MODERATE EPI/hpf (0-FEW)
[2020-11-01 11:15] VITALS: BP 154/72
== END 2020-11-01 11:15 | DRG 64 ==
LOC: ED 06:33
PROVIDERS: Emergency Medicine
PROC: 0T9B70Z Drainage of Bladder with Drainage Device, Via Natural or Artificial Opening (ICD-10-PCS; principal; 2020-11-01)
DX: I63.89 Other cerebral infarction (principal); I21.4 Non-ST elevation (NSTEMI) myocardial infarction; J18.9 Pneumonia, unspecified organism; I50.1 Left ventricular failure, unspecified; G83.24 Monoplegia of upper limb affecting left nondominant side; I11.0 Hypertensive heart disease with heart failure; E11.9 Type 2 diabetes mellitus without complications; I48.91 Unspecified atrial fibrillation; F03.90 Unspecified dementia, unspecified severity, without behavioral disturbance, psychotic disturbance, mood disturbance, and anxiety; Z20.822 Contact with and (suspected) exposure to COVID-19